=== PATIENT | female | born 1970 | race Caucasian/White ===

== ENCOUNTER 2016-12-19 13:08 | Emergency (ER) | payer OTHER ==
[~2016-12-19] VITALS: Ht 162.6 cm; Wt 93.1 kg
[2016-12-19 14:09] LABS: HEMATOCRIT 38.3 % (36.0-46.0); MCH 29.1 PG (29.0-34.0); MCHC 33.4 G/DL (30.0-36.0); MEAN PLAT.VOLUME 9.1 uM^3 (9.5-12.4); PLATELET COUNT 275 K/uL (156-360); RBC DIS.WIDTH-CV 12.4 % (11.8-14.6); RBC DIS.WIDTH-SD 39.7 % (39-53); WHITE BLOOD COUNT 6.1 K/uL (4.1-10.2)
[2016-12-19 14:19] LABS: CHLORIDE 105 mEq/L (99-109); POTASSIUM 3.6 mEq/L (3.7-5.4); SODIUM 140 mEq/L (136-147)
[2016-12-19 14:22] LABS: GLUCOSE 82 mg/dL (70-99)
[2016-12-19 14:23] LABS: ANION GAP 9 MEQ/L (2-14); TOTAL BILIRUBIN 0.2 mg/dL (0.0-1.0)
[2016-12-19 14:25] LABS: ALKALINE PHOSPHATASE 71 IU/L (3-129); GFR ESTIMATE (CALCULATED) > 59 mL/min/
[2016-12-19 14:26] LABS: UREA NITROGEN (BUN) 12 mg/dL (9-23)
[2016-12-19 14:34] LABS: QUANTITATIVE HCG < 4.0 MIU/ML
[2016-12-19 14:44] LABS: ADD MIUA? YES; BILIRUBIN NEGATIVE; BLOOD NEGATIVE; COLOR YELLOW ((YELLOW)); GLUCOSE (STRIP) NEGATIVE; KETONES NEGATIVE; LEUKOCYTES TRACE; NITRITE NEGATIVE; PROTEIN (STRIP) NEGATIVE; SPECIFIC GRAVITY 1.013 (1.000-1.030); UROBILINOGEN 0.2 MG/DL (0.2-1.0)
[2016-12-19 14:50] LABS: BACTERIA NONE SEEN /HPF; EPITHELIAL CELLS RARE /HPF; MUCUS NONE SEEN /LPF; RED BLOOD CELLS 0-5 /HPF (0-5); UCUL ADDED? NO; WHITE BLOOD CELLS 0-5 /HPF (0-5)
[2016-12-19] MEDS ORDERED: ASPIR 8181 M1 PO (15:32)
[2016-12-19] MEDS ORDERED: CARBAMAZEPINE200 MG PO (15:32)
[2016-12-19] MEDS ORDERED: TOPAMAX25 MG PO (15:32)
[2016-12-19] MEDS ORDERED: ASCORBIC ACID100 MG PO (15:33)
[2016-12-19] MEDS ORDERED: BENTYL10 MG PO (17:27)
[2016-12-19] MEDS ORDERED: NORCO 5/3251 TABLET PO (17:27)
[2016-12-19 17:49] VITALS: BP 145/70
== END 2016-12-19 17:53 | disposition home or self-care (01) ==
LOC: EME 13:08
DX: R10.31 Right lower quadrant pain (principal); F17.200 Nicotine dependence, unspecified, uncomplicated
CPT/HCPCS: 74177; 80053; 81003; 84702; 85027; 99281; 99284; J7040